=== PATIENT | male | born 1950 | race Caucasian/White ===

== ENCOUNTER 2016-11-07 23:58 | Emergency (ER) | payer MEDICARE, OTHER ==
[~2016-11-07] VITALS: Ht 188 cm; Wt 96.5 kg
[2016-11-08 00:04] VITALS: BP 161/89; PULSE 71; RESP 16; TEMP 99.2
[2016-11-08] MEDS ORDERED: FINA5TAB2 PO (00:44)
[2016-11-08] MEDS ORDERED: SACC1CAP3 PO (00:44)
[2016-11-08] MEDS ORDERED: TAMS0.4C4 PO (00:44)
[2016-11-08] MEDS ORDERED: HYDR25TA5 PO (00:44)
--- NOTE | 2016-11-08 01:50 | PD ---
HPI Chief Complaint: Abdominal Pain Time Seen by Provider: 01:29 Travel History International Travel<30 days: No Contact w/Intl Traveler<30days: No Traveled to known affect area: No History of Present Illness HPI The patient is a 66-year-old male that complains of right upper quadrant pain for the past 5 hours. The pain is getting slightly less than when he came in. He denies any nausea, radiation of pain, fever, diarrhea or vomiting. He has never had this pain before. He does have a history of kidney stones and has had lithotripsy. His only abdominal surgery is an angle hernia. PFSH Past Medical History Blood Disorders: No Cancer: No Cardiovascular Problems: No Chemotherapy: No Diminished Hearing: No Endocrine: No Genitourinary: Yes (ENLARGED PROSTATE) Hypertension: Yes Immune Disorder: No Kidney Stones: Yes Musculoskeletal: Yes (TENNIS ELBOW, RIGHT HIP PAIN, BURSITIS BILAT) Neurologic: No Psychiatric: No Reproductive: No Respiratory: No Radiation Therapy: No Influenza Vaccination: No Past Surgical History Abdominal Surgery: Yes (3 ING HERNIA) AICD: No Cardiac Surgery: No Genitourinary Surgery: No Gynecologic Surgery: No Pacemaker: No Thoracic Surgery: No Other Surgery: Yes (LITHOTRIPSY) Social History Alcohol Use: No Tobacco Use: No Substance Use: No Allergies-Medications (Allergen,Severity, Reaction): Coded Allergies: No Known Allergies (Verified Allergy, Severe, 10/04/07) Reported Meds & Prescriptions Reported Meds & Active Scripts Active Reported Probiotic (Saccharomyces Boulardii) 250 Mg Cap 250 Mg PO DAILY Finasteride 5 Mg Tab 5 Mg PO DAILY Do not crush. Tamsulosin (Tamsulosin HCl) 0.4 Mg Cap 0.4 Mg PO HS Hydrochlorothiazide 25 Mg Tab 25 Mg PO DAILY Review of Systems Except as stated in HPI: all other systems reviewed are Neg Physical Exam Narrative GENERAL: The patient is alert, oriented 3 in minimal apparent distress with areas right sided abdominal pain. SKIN: Warm and dry. HEAD: Atraumatic. Normocephalic. EYES: Pupils equal and round. No scleral icterus. No injection or drainage. ENT: No nasal bleeding or discharge. Mucous membranes pink and moist. NECK: Trachea midline. No JVD. CARDIOVASCULAR: Regular rate and rhythm. No murmur appreciated. RESPIRATORY: No accessory muscle use. Clear to auscultation. Breath sounds equal bilaterally. GASTROINTESTINAL: Abdomen soft, non-tender, nondistended. Hepatic and splenic margins not palpable. No guarding or rebound is present and Mora's sign is negative. MUSCULOSKELETAL: No obvious deformities. No clubbing. No cyanosis. No edema. NEUROLOGICAL: Awake and alert. No obvious cranial nerve deficits. Motor grossly within normal limits. Normal speech. PSYCHIATRIC: Appropriate mood and affect; insight and judgment normal. Data Data Last Documented VS Vital Signs Date Time Temp Pulse Resp B/P Pulse Ox O2 Delivery O2 Flow Rate FiO2 11/08/16 02:40 14 94 Nasal Cannula 2 11/08/16 02:05 68 168/84 11/08/16 00:04 99.2 Orders Complete Blood Count With Diff (11/08/16 01:55) Comprehensive Metabolic Panel (11/08/16 01:55) Lipase (11/08/16 01:55) Urinalysis - C+S If Indicated (11/08/16 01:55) Iv Access Insert/Monitor (11/08/16 01:55) Ecg Monitoring (11/08/16 01:55) Oximetry (11/08/16 01:55) Sodium Chlor 0.9% 1000 Ml Inj (Ns 1000 M (11/08/16 01:55) Sodium Chloride 0.9% Flush (Ns Flush) (11/08/16 02:00) Ondansetron Inj (Zofran Inj) (11/08/16 02:30) Hydromorphone Pf Inj (Dilaudid Pf Inj) (11/08/16 02:30) Ketorolac Inj (Toradol Inj) (11/08/16 02:30) Ct Abd/Pel W Iv Contrast(Rout) (11/08/16 02:39) Iohexol 350 Inj (Omnipaque 350 Inj) (11/08/16 03:01) Labs Laboratory Tests Test 11/08/16 11/08/16 01:15 02:10 Urine Color STRAW Urine Turbidity CLOUDY Urine pH 7.0 Urine Specific [place] 1.014 Urine Protein NEG mg/dL Urine Glucose (UA) NEG mg/dL Urine Ketones NEG mg/dL Urine Occult Blood NEG Urine Nitrite NEG Urine Bilirubin NEG Urine Leukocyte Esterase NEG Urine RBC 0-2 /hpf Urine WBC 0-2 /hpf Urine Squamous Epithelial 0-5 /hpf Cells Urine Amorphous Sediment LARGE Urine Bacteria NONE /hpf Microscopic Urinalysis Comment CULT NOT INDICATED White Blood Count 11.6 TH/MM3 Red Blood Count 5.15 MIL/MM3 Hemoglobin 15.0 GM/DL Hematocrit 44.1 % Mean Corpuscular Volume 85.6 FL Mean Corpuscular Hemoglobin 29.1 PG Mean Corpuscular Hemoglobin 34.1 % Concent Red Cell Distribution Width 12.4 % Platelet Count 309 TH/MM3 Mean Platelet Volume 7.6 FL Neutrophils (%) (Auto) 88.3 % Lymphocytes (%) (Auto) 7.2 % Monocytes (%) (Auto) 4.0 % Eosinophils (%) (Auto) 0.2 % Basophils (%) (Auto) 0.3 % Neutrophils # (Auto) 10.3 TH/MM3 Lymphocytes # (Auto) 0.8 TH/MM3 Monocytes # (Auto) 0.5 TH/MM3 Eosinophils # (Auto) 0.0 TH/MM3 Basophils # (Auto) 0.0 TH/MM3 CBC Comment DIFF FINAL Differential Comment Sodium Level 141 MEQ/L Potassium Level 3.7 MEQ/L Chloride Level 106 MEQ/L Carbon Dioxide Level 26.1 MEQ/L Anion Gap 9 MEQ/L Blood Urea Nitrogen 15 MG/DL Creatinine 1.20 MG/DL Estimat Glomerular Filtration 61 ML/MIN Rate Random Glucose 142 MG/DL Calcium Level 9.0 MG/DL Total Bilirubin 0.3 MG/DL Aspartate Amino Transf 22 U/L (AST/SGOT) Alanine Aminotransferase 37 U/L (ALT/SGPT) Alkaline Phosphatase 31 U/L Total Protein 7.0 GM/DL Albumin 3.8 GM/DL Lipase 135 U/L [facility] Medical Decision Making Medical Screen Exam Complete: Yes Emergency Medical Condition: Yes Medical Record Reviewed: Yes Interpretation(s) Urinalysis shows cloudy turbidity, large amorphous sediment but is otherwise normal and culture is not indicated. The CBC shows a white count of 11,600 with 88% neutrophils but is otherwise unremarkable. The complete metabolic profile shows a GFR of 61, glucose 142 but is otherwise unremarkable. The lipase is normal. The CT scan with contrast shows a bladder calculus and nonobstructing bilateral renal calculi. It also shows a prominent prostate, atherosclerosis and indeterminate masses within the right lobe of the liver. MRI evaluation with and without contrast is recommended for further assessment of these masses. Differential Diagnosis Renal calculi, appendicitis, colitis, mesenteric adenitis Narrative Course The patient has bladder and renal calculi. No obstruction is noted. Plan: The patient is to follow-up with urology regarding his bladder calculi and other renal calculi. He should also follow-up regarding the masses on the right lobe of liver. Physician Communication Physician Communication As we discussed, call the urologist later on today to set up an appointment. You have a stone in the bladder and several in the kidneys. The stone in the bladder could causing some problems. Also, remember the liver masses have to be followed up, likely by MRI studies. You can do this through your strategic debriefing officer or primary care physician. Diagnosis Primary Impression: Calculus, bladder Additional Impressions: Renal calculus, bilateral Liver masses Abdominal pain Additional Instructions: Zofran and Percocet are prescribed for nausea and pain. Do not drink alcohol or drive on the Percocet. Today call the urology office to set up an appointment. Also, set up an appointment with your primary care physician or strategic debriefing officer to follow-up the liver masses. Med/Other Pt SpecificInfo: Prescription(s) given Scripts Oxycodone-Acetaminophen (Percocet)5-325 mg Tab1 Tab PO Q6H PRN (PAIN) #30 TAB Ref 0 Prov:Jaime Sapp MD 11/08/16 Ondansetron (Zofran)4 Mg Tab4 Mg PO Q6HR PRN (NAUSEA OR VOMITING) #30 TAB Ref 0 Prov:Jaime Sapp MD 11/08/16 Disposition: 01 DISCHARGE HOME Condition: Stable Jaime Sapp MD Nov 08, 2016 01:50
[2016-11-08] MEDS ORDERED: SODIUM CHLOR 0.9% 1000 ML INJ 1,000 ML IV SCH (01:55)
[2016-11-08] MEDS ORDERED: SODIUM CHLORIDE 0.9% FLUSH 5 ML FLUSH IVF PRN (02:00)
[2016-11-08 02:05] VITALS: BP 168/84; PULSE 68; RESP 14; O2SAT 93
[2016-11-08 02:25] LABS: BLOOD, URINE NEG (NEG); GLUCOSE,URINE NEG (NEG); KETONE, URINE NEG (NEG); NITRITE,URINE NEG (NEG)
[2016-11-08 02:28] LABS: AUTOMATED NEUTROPHIL # 10.3 TH/MM3 (1.8-7.7); BASOPHIL % 0.3 % (0.0-2.0); EOSINOPHIL % 0.2 % (0.0-4.0); HEMATOCRIT 44.1 % (39.0-51.0); HEMO FLAGS DIFF FINAL; LYMPH % 7.2 % (9.0-44.0); LYMPHOCYTE # 0.8 TH/MM3 (1.0-4.8); MEAN CELL VOLUME 85.6 FL (80.0-100.0); MEAN CORPUSCULAR HEMOGLOBIN 29.1 PG (27.0-34.0); MEAN CORPUSCULAR HGB CONC 34.1 % (32.0-36.0); NEUT % 88.3 % (16.0-70.0); PLATELET COUNT 309 TH/MM3 (150-450); RED BLOOD COUNT 5.15 MIL/MM3 (4.50-5.90); RED CELL DISTRIBUTION WIDTH 12.4 % (11.6-17.2); WHITE BLOOD COUNT 11.6 TH/MM3 (4.0-11.0)
[2016-11-08] MEDS ORDERED: HYDROmorphone HCL PF 1 MG/ML VIAL IVP ONE (02:30)
[2016-11-08] MEDS ORDERED: ONDANSETRON HCL 4 MG/2 ML VIAL IV ONE (02:30)
[2016-11-08] MEDS ORDERED: KETOROLAC TROMETHAMINE 60 MG/2 ML (IM) VIAL IVP ONE (02:30)
[2016-11-08 02:33] LABS: CHLORIDE 106 MEQ/L (98-107); POTASSIUM 3.7 MEQ/L (3.5-5.1); SODIUM (NA) 141 MEQ/L (136-145)
[2016-11-08 02:33] LABS: COMMENT (UR) CULT NOT INDICATED; CULTURE IF INDICATED CULT NOT INDICATED; RBC, URINE 0-2 /hpf (0-3); SQUAMOUS EPITHELIAL CELL URINE 0-5 /hpf (0-5); URINE COLOR STRAW (YELLW/STRAW); WBC, URINE 0-2 /hpf (0-5)
[2016-11-08 02:37] LABS: ANION GAP 9 MEQ/L (5-15); BICARBONATE 26.1 MEQ/L (21.0-32.0); BLOOD UREA NITROGEN 15 MG/DL (7-18)
[2016-11-08 02:40] VITALS: RESP 14; O2SAT 94
[2016-11-08 02:40] LABS: ALT (GPT) 37 U/L (12-78); AST (GOT) 22 U/L (15-37); GLOMERULAR FILTRATION RATE 61 ML/MIN (>89)
[2016-11-08 02:42] LABS: TOTAL BILIRUBIN ADULT 0.3 MG/DL (0.2-1.0)
[2016-11-08 02:43] LABS: ALKALINE PHOSPHATASE 31 U/L (45-117)
[2016-11-08] MEDS ORDERED: IOHEXOL 350 MG/ML 10 ML VIAL (for RAD DIAG) IV ONE (03:01)
[2016-11-08 03:05] VITALS: BP 171/78; PULSE 89; RESP 14; O2SAT 95
--- NOTE | 2016-11-08 03:21 | RADHPO ---
EXAM DATE/TIME: 11/08/2016 02:55 [facility] COMPARISON: No previous studies available for comparison. INDICATIONS : Sudden onset right side abdomen pain. IV CONTRAST: 100 cc Omnipaque 350 (iohexol) IV ORAL CONTRAST: No oral contrast ingested. RADIATION DOSE: 18.97 CTDIvol (mGy) MEDICAL HISTORY : Hypertension. Hernia, inguinal. SURGICAL HISTORY : Inguinal hernia repair. ENCOUNTER: Initial ACUITY: 1 day PAIN SCALE: 6/10 LOCATION: Right abdomen TECHNIQUE: Volumetric scanning of the abdomen and pelvis was performed. Using automated exposure control and ad justment of the mA and/or kV according to patient size, radiation dose was kept as low as reasonably achievable to obtain optimal diagnostic quality images. FINDINGS: There are 2 tiny cysts in the left hepatic lobe measuring up to 1 cm on image 8. There is a low atten uation mass in the right lobe measuring 2.5 cm which is incompletely characterized on this study. Als o noted is an enhancing mildly inhomogeneous solid mass of the right lobe on axial image 22 measuring 4.7 x 3.7 cm in AP and transverse dimension with punctate central area of decreased density. The spl een, pancreas, bilateral adrenal glands are unremarkable. There are subcentimeter cysts of both kidne ys. Right midpole 2.5 mm nonobstructing renal calculus on image 36 and 23 mm left midpole renal calcu li on image 36 as well as a 1.5 mm left lower pole calculus. There is no hydronephrosis. Atherosclero tic calcification of the aorta. Prostatic calcifications are seen. There is a calculus within the dep endent portion of the bladder measuring 6.7 mm on image 74. There is also a calcification at the left ureterovesical junction within the posterior aspect of the bladder measuring 6.1 mm. The prostate is prominent with impression on the urinary bladder posteriorly. CONCLUSION: 1. Bladder calculus and nonobstructing bilateral renal calculi. 2. Prominent prostate. 3. Atherosclerosis. 4. Indeterminate masses within the right lobe of the liver. MRI evaluation with and without contrast recommended for further assessment on a nonemergent outpatient basis. Lungs are clear. Romeo Markham MD on November 08, 2016 at 3:16 Board Certified Radiologist. This report was verified electronically.
[2016-11-08 03:40] VITALS: RESP 18
[2016-11-08] MEDS ORDERED: ZOFR4TAB PO (04:09)
[2016-11-08] MEDS ORDERED: PERC5TAB12 PO (04:09)
[2016-11-08 04:25] VITALS: BP 154/72
== END 2016-11-08 04:27 | disposition home or self-care (01) ==
LOC: PHED 23:58
DX: R16.0 Hepatomegaly, not elsewhere classified (principal); N20.0 Calculus of kidney; I10 Essential (primary) hypertension
CPT/HCPCS: 74177; 80053; 81001; 83690; 85025; 96361; 96374; 96375; 99284; J1170; J1885; J2405; J7030; Q9967

== ENCOUNTER 2016-12-24 09:06 | Day surgery (SDC) | payer MEDICARE ==
[~2016-12-24] VITALS: Ht 188 cm; Wt 90.0 kg
[2016-12-24] VITALS (7 sets, daily range): BP systolic 129–156; BP diastolic 56–87; PULSE 82–91; RESP 17–19; TEMP 98–98.6; O2SAT 93–97
[~2016-12-24 09:06] MED LIST: FINA5TAB2 PO; HYDR25TA5 PO; PERC5TAB12 PO; SACC1CAP3 PO; TAMS0.4C4 PO; ZOFR4TAB PO
[2016-12-24] MEDS ORDERED: RANI150T PO (09:27)
[2016-12-24 09:55] LABS: AUTOMATED NEUTROPHIL # 3.7 TH/MM3 (1.8-7.7); BASOPHIL # 0.1 TH/MM3 (0-0.2); BASOPHIL % 0.9 % (0.0-2.0); EOSINOPHIL # 0.1 TH/MM3 (0-0.4); EOSINOPHIL % 1.5 % (0.0-4.0); HEMATOCRIT 46.3 % (39.0-51.0); HEMO FLAGS DIFF FINAL; LYMPH % 26.1 % (9.0-44.0); LYMPHOCYTE # 1.6 TH/MM3 (1.0-4.8); MEAN CELL VOLUME 85.5 FL (80.0-100.0); MEAN CORPUSCULAR HEMOGLOBIN 28.8 PG (27.0-34.0); MEAN CORPUSCULAR HGB CONC 33.7 % (32.0-36.0); MONO % 10.2 % (0.0-8.0); NEUT % 61.3 % (16.0-70.0); PLATELET COUNT 259 TH/MM3 (150-450); RED BLOOD COUNT 5.42 MIL/MM3 (4.50-5.90); RED CELL DISTRIBUTION WIDTH 13.3 % (11.6-17.2)
[2016-12-24] MEDS ORDERED: SODIUM CHLOR 0.9% 1000 ML IV SCH (10:00)
[2016-12-24 10:03] LABS: PROTHROMBIN TIME - PATIENT 10.7 SEC (9.8-11.6)
[2016-12-24 10:08] LABS: APTT (PATIENT) 28.6 SEC (24.3-30.1)
[2016-12-24] MEDS ORDERED: LIDOCAINE 1%/EPINEPHrine 1:100,000 SOLN 20 ML VIAL ONE (12:03)
[2016-12-24] MEDS ORDERED: MIDAZOLAM HCL 5 MG/5 ML VIAL ONE (12:20)
[2016-12-24] MEDS ORDERED: fentaNYL CITRATE 250 MCG/5 ML AMP ONE (12:20)
--- NOTE | 2016-12-24 15:31 | RADRPT ---
EXAM DATE/TIME: 12/24/2016 12:28 [facility] COMPARISON: No previous studies available for comparison. INDICATIONS : Liver mass SEDATION TIME: 45 minutes BIOPSY SITE: liver MEDICATION(S): 1.) 1.5 mg midazolam (Versed) IV 2.) 75 mcg fentanyl (Sublimaze) IV DEVICE(S): 1.) 16 gauge Vo blunt needle 2.) 18 gauge BioPince MEDICAL HISTORY : Hypertension. Liver cyst SURGICAL HISTORY : Inguinal hernia repair. ENCOUNTER: Initial ACUITY: 1 day PAIN SCORE: 0/10 LOCATION: Right abdomen A total of two core specimen(s) were obtained and sent to the laboratory for pathologic evaluation. PROCEDURE: 1. CT guided liver biopsy. 2. Conscious sedation with continuous EKG and oximetry monitoring. 3. EKG and oximetry remained stable throughout the procedure. Prior to the procedure informed consent was obtained. Any appropriate prior imaging studies were rev iewed. Using automated exposure control and adjustment of the mA and/or kV according to patient size, radiat ion dose was kept as low as reasonably achievable to obtain optimal diagnostic quality images. The site was prepped in a sterile fashion. Full sterile technique was used, including cap, mask, daria rile gloves and gown and a large sterile sheet. Hand hygiene and 2% chlorhexidine and/or betadine/al cohol prep was utilized per protocol for cutaneous antisepsis. The skin and subcutaneous tissues wer e infiltrated with local anesthetic solution. With CT guidance the previously identified target was localized. Biopsy was performed using the presc ribed needle as above. Adequate hemostasis was obtained with compression at the puncture site. Follow-up CT scan reveals no hemorrhage. The patient tolerated the procedure well and there were no complications. The patient was returned to the Radiology Outpatient Unit in stable condition. CONCLUSION: Uncomplicated CT guided biopsy. Rachid Tovar MD on December 24, 2016 at 15:29 Board Certified Radiologist. This report was verified electronically.
== END 2016-12-24 16:00 | disposition home or self-care (01) ==
LOC: HRAD 09:06 → HRIP 09:06 → HRAD 16:00
PROVIDERS: ATTEND Surgery
DX: K76.89 Other specified diseases of liver (principal); K83.1 Obstruction of bile duct; I10 Essential (primary) hypertension
CPT/HCPCS: 47000; 77012; 85025; 85610; 85730; 88307; 88313; J2250; J3010; J7030